=== PATIENT | female | born 1990 | race African-American/Black ===

== ENCOUNTER 2017-10-21 16:50 | Inpatient (IN) | payer OTHER ==
[~2017-10-21 16:50] MED LIST: METOCLOPRAMIDE HCL INJ/PF 10 MG/2 ML SDV ONE; PHENYLEPHRINE HCL INJ/PF 10 MG/1 ML SDV ONE
[2017-10-21 17:29] LABS: APPEARANCE,URINE CLOUDY; BILIRUBIN,URINE NEGATIVE (NEGATIVE); COLOR,URINE YELLOW; GLUCOSE, URINE NEGATIVE (NEGATIVE); KETONES,URINE NEGATIVE (NEGATIVE); LEUKOCYTE ESTERASE,URINE SMALL (NEGATIVE); NITRITE,URINE NEGATIVE (NEGATIVE); PROTEIN,URINE 30 mg/dL (NEGATIVE); URINE SPECIFIC GRAVITY 1.013; UROBILINOGEN,URINE NEGATIVE mg/dL (<2.0)
[2017-10-21 17:45] LABS: URINE AMPHETAMINES SCREEN NEGATIVE; URINE BARBITURATES SCREEN NEGATIVE; URINE BENZODIAZEPINES SCREEN NEGATIVE; URINE COCAINE SCREEN NEGATIVE; URINE MARIJUANA (THC) SCREEN NEGATIVE; URINE METHADONE SCREEN NEGATIVE; URINE PHENCYCLIDINE SCREEN NEGATIVE
[2017-10-21 18:51] LABS: ABSOLUTE BASOPHILS # (AUTO) 0.1 10^3/uL (0.0-0.2); ABSOLUTE EOSINOPHILS # (AUTO) 0.1 10^3/uL (0.0-0.6); ABSOLUTE LYMPHOCYTES (AUTO) 1.8 10^3/uL (0.5-4.7); ABSOLUTE MONOCYTES (AUTO) 0.6 10^3/uL (0.1-1.4); ABSOLUTE NEUT (AUTO) 5.6 10^3/uL (1.7-8.2); BASOPHILS % (AUTO) 0.7 % (0-2); HEMATOCRIT 34.9 % (36.0-47.0); HEMOGLOBIN 11.6 g/dL (12.0-15.5); LYMPHOCYTES % (AUTO) 21.8 % (13-45); MEAN CORPUSCULAR HEMOGLOBIN 25.5 pg (27.0-33.4); MEAN CORPUSCULAR HGB CONC 33.3 g/dL (32.0-36.0); MEAN CORPUSCULAR VOLUME 77 fl (80-97); MONOCYTES % (AUTO) 7.4 % (3-13); PLATELET COUNT 167 10^3/uL (150-450); RED BLOOD COUNT 4.55 10^6/uL (3.72-5.28); SEGMENTED NEUTROPHILS % (AUTO) 69.1 % (42-78); TOTAL CELLS COUNTED % (AUTO) 100 %; WHITE BLOOD COUNT 8.1 10^3/uL (4.0-10.5)
[2017-10-21 19:09] LABS: ALANINE AMINOTRANSFERASE 17 U/L (9-52); ALBUMIN 3.3 g/dL (3.5-5.0); ALKALINE PHOSPHATASE 143 U/L (38-126); ANION GAP 11 (5-19); ASPARTATE AMINO TRANSFERASE 20 U/L (14-36); BILIRUBIN,DIRECT 0.2 mg/dL (0.0-0.4); BILIRUBIN,TOTAL 0.3 mg/dL (0.2-1.3); BLOOD UREA NITROGEN 11 mg/dL (7-20); CALCIUM 9.5 mg/dL (8.4-10.2); CARBON DIOXIDE 18 mmol/L (22-30); CHLORIDE 106 mmol/L (98-107); GLUCOSE 90 mg/dL (75-110); POTASSIUM 4.3 mmol/L (3.6-5.0); SODIUM 134.5 mmol/L (137-145); TOTAL PROTEIN 6.3 g/dL (6.3-8.2); URIC ACID 7.5 mg/dL (2.5-6.2)
[2017-10-21 19:12] LABS: APPEARANCE,URINE CLEAR; BILIRUBIN,URINE NEGATIVE (NEGATIVE); COLOR,URINE STRAW; GLUCOSE, URINE NEGATIVE (NEGATIVE); KETONES,URINE NEGATIVE (NEGATIVE); LEUKOCYTE ESTERASE,URINE NEGATIVE (NEGATIVE); NITRITE,URINE NEGATIVE (NEGATIVE); PROTEIN,URINE NEGATIVE (NEGATIVE); URINE SPECIFIC GRAVITY 1.005; UROBILINOGEN,URINE NEGATIVE mg/dL (<2.0)
[2017-10-21 19:37] LABS: UR PRO/CREAT RATIO RESULT 0.6 mg/mg (0.0-0.2); URINE PROTEIN 19.8 mg/dL (<12)
--- NOTE | 2017-10-21 19:50 | Admission Physical ---
Datetime Report Generated by CPN: 10/21/2017 19:50 CURRENT ADMISSION Chief Complaint: Illness; Maternal Discomfort Chief Complaint Other: Headaches x 4 days Indication for Induction: PreEclampsia; Other Indication for Induction- Other: previous c/section. Pt is scheduled for repeat c/section on Friday Admit Impression : Term, Intrauterine ; Repeat Section; Medical Complication Admit Impression- Other: Increased bps and labs indicating PreE. Admit Plan: Admit to Unit; Initiate Section Protocol ALLERGIES Medication Allergies: No Known Allergies (10/21/2017) OBSTETRICAL HISTORY EDC: 10/29/2017 00:00 : 4 Para: 1 Cesareans: 1 SEE RECORDS Alcohol: No Marijuana : No Cocaine: No Other Illicit Drugs: No Cigarettes: Never Smoker. [id number] PHYSICAL EXAM General: Normal HEENT: Normal Neurologic: Normal Thyroid: Normal Heart: Normal Lungs: Normal Breast: Normal Back: Normal Abdomen: Normal Genitourinary Exam: Normal Extremities: Normal DTRs: Normal Pelvic Type: Adequate Vital Signs: Reviewed Details Vital Signs: several diastolic pressures >00 MEMBRANES Pooling: Negative Membranes: Intact FETUS A EGA: 38.6 Monitoring: External US FHR- Baseline: 130 Variability: Moderate 6-25bpm Accelerations: 15X15 Decelerations: None FHR Category: Category I Estimated Weight (gm): 3500 Presentation: Vertex Admit Comment: admit for repeat c/section due to GHTN/PreE. plan d/w patient who is in agreement. d/w pt regarding BTL and she does not desire at this time. INFORMED CONSENT Signature: with User ID: [email or web address]
[2017-10-21] MEDS ORDERED: CEFAZOLIN SODIUM 1 GM in DEXTROSE 5%-WATER 50 ML IV PRN (19:54)
[2017-10-21] MEDS ORDERED: RINGERS SOLUTION 1,000 ML IV PRN (19:57)
[2017-10-21] MEDS ORDERED: CITRIC ACID/SODIUM CITRATE ORAL SOLN 15 ML UDCUP ONE ×2 (20:11)
[2017-10-21] MEDS ORDERED: CEFAZOLIN 1 GM/D5W RTU 1 GM/50 ML RTUPB IV ONE (20:11)
[2017-10-21] MEDS ORDERED: RINGERS SOLUTION,LACTATED 1,000 ML IV PRN ×2 (20:35→21:53)
[2017-10-21] MEDS ORDERED: RINGERS SOLUTION,LACTATED 1,000 ML IV ONE (20:47)
[2017-10-21] MEDS ORDERED: FENTANYL CITRATE INJ/PF 100 MCG/2 ML AMPUL ONE (20:53)
[2017-10-21] MEDS ORDERED: MIDAZOLAM 2 MG/2 ML INJ ONE (20:53)
[2017-10-21] MEDS ORDERED: EPHEDRINE SULFATE INJ 50 MG/1 ML AMPULE ONE (20:53)
[2017-10-21] MEDS ORDERED: OXYTOCIN 10 UNIT/ML VIAL ONE (20:53)
[2017-10-21] MEDS ORDERED: OXYTOCIN/NORMAL SALINE 20 UNIT/1,000 ML RTUINJ ONE (20:53)
[2017-10-21] MEDS ORDERED: ONDANSETRON HCL INJ/PF 4 MG/2 ML SDV ONE (20:54)
[2017-10-21] MEDS ORDERED: BUPIVACAINE HCL/DEX-WATER/PF 15 MG/2 ML AMPULE ONE (21:00)
[2017-10-21] MEDS ORDERED: PROMETHAZINE HCL INJ 25 MG/1 ML VIAL IV PRN ×2 (21:47→21:53)
[2017-10-21] MEDS ORDERED: MORPHINE SULFATE 10 MG/ML INJ IV PRN ×2 (21:47→21:53)
[2017-10-21] MEDS ORDERED: DIPHENHYDRAMINE HCL 50 MG/ML VIAL IV PRN (21:47)
[2017-10-21] MEDS ORDERED: MEPERIDINE HCL/PF INJ 25 MG/1 ML DISP.SYRIN IV PRN (21:47)
[2017-10-21] MEDS ORDERED: FENTANYL CITRATE INJ/PF 100 MCG/2 ML AMPUL IV PRN ×3 (21:47)
[2017-10-21] MEDS ORDERED: NALBUPHINE HCL INJ 10 MG/1 ML AMPULE IM ONE (21:48)
[2017-10-21] MEDS ORDERED: DIPH/PERTUSS(ACELL)/TETANUS VAC/PF 0.5 ML SYR (>=10YO) IM PRN (21:53)
[2017-10-21] MEDS ORDERED: OXYTOCIN/NORMAL SALINE 20 UNIT/1,000 ML RTUINJ IV PRN (21:53)
[2017-10-21] MEDS ORDERED: ACETAMINOPHEN 325 MG TABLET PO PRN (21:53)
[2017-10-21] MEDS ORDERED: OXYCODONE-ACETAMINOPHEN 5-325 MG TABLET PO PRN (21:53)
[2017-10-21] MEDS ORDERED: SIMETHICONE 80 MG TAB.CHEW PO PRN (21:53)
[2017-10-21] MEDS ORDERED: MEASLES,MUMPS&RUBELLA VACC/PF 0.5 ML VIAL SUBCUT PRN (21:53)
[2017-10-21] MEDS ORDERED: ACETAMINOPHEN 100 MG/10 ML RTUPB IV PRN (21:53)
--- NOTE | 2017-10-21 22:11 | OPERATIVE REPORT E ---
Operative Report NAME: YAMEL PATEL : 1990 AGE: 27Y DATE OF SURGERY: 10/21/2017 ROOM: LR200 PREOPERATIVE DIAGNOSES: INTRAUTERINE AT 38 WEEKS AND 6 DAYS, PREECLAMPSIA, GESTATIONAL HYPERTENSION. POSTOPERATIVE DIAGNOSES: INTRAUTERINE AT 38 WEEKS AND 6 DAYS, PREECLAMPSIA, GESTATIONAL HYPERTENSION. OPERATION: Repeat low transverse hysterotomy section. SURGEON: KAREEM GIFFORD M.D. ANESTHESIA: Spinal. FINDINGS: Male infant in cephalic presentation with Apgars of 9-9. ESTIMATED BLOOD LOSS: 750 mL. SPECIMENS RMEOVED: None. PROCEDURE: The patient was taken to the operating room, prepared and draped in normal sterile fashion in supine position with a leftward tilt. A transverse skin incision was made with the scalpel and carried through to the underlying layer of fascia with the same scalpel. The fascia was excised in the midline and extended laterally with Mayos. The fascia was dissected sharply from the rectus muscle using a Bovie, and the rectus muscle was divided. The peritoneal cavity had been entered bluntly. With good visualization of the bladder and the uterus, the hysterotomy was nicked with a scalpel and extended laterally with surgeon finger fracture. The infant was then delivered atraumatically. The nose and mouth were suctioned with a suction bulb. The cord was clamped and cut. The was handed off to waiting pediatricians. Cord blood was collected. The placenta was removed manually. The uterus was exteriorized and cleared of clots and debris. The hysterotomy was closed with 0 Monocryl in a running locked fashion. A 2nd layer of the same suture was used in an imbricating stitch to ensure hemostasis. The uterus was returned to the abdomen. The peritoneal cavity was cleared of clots and debris. The rectus muscle and peritoneum were reapproximated with a mattress stitch of 2-0 Chromic. The fascia was closed with 0 Vicryl. The subcutaneous layer was closed with plain cat gut, and the skin was closed with 4-0 Vicryl. The patient tolerated the procedure well. Sponge, lap, and needle counts were correct x2. The patient was taken to recovery in stable condition. DICTATING PHYSICIAN: KAREEM GIFFORD M.D. [id number] PHY#: [id number] ID: [id number] JOB#: [id number] ACCT: [id number] cc:KAREEM GIFFORD M.D. >
[2017-10-21] MEDS ORDERED: KETOROLAC TROMETHAMINE INJ/PF 30 MG/1 ML SDV ONE (22:57)
[2017-10-21] MEDS ORDERED: ACETAMINOPHEN 1,000 MG/100 ML RTUPB IV ONE (22:57)
[2017-10-21] MEDS: KETOROLAC TROMETHAMINE INJ/PF 30 MG/1 ML SDV IV SCH (23:20)
[2017-10-22] MEDS: IBUPROFEN 800 MG TABLET PO SCH ×4 (02:27→21:27)
[2017-10-22] MEDS: OXYCODONE-ACETAMINOPHEN 5-325 MG TABLET PO PRN ×4 (06:51→19:36)
[2017-10-22] MEDS: KETOROLAC TROMETHAMINE INJ/PF 30 MG/1 ML SDV IV SCH ×2 (06:51→15:26)
[2017-10-22 07:40] LABS: HEMATOCRIT 33.3 % (36.0-47.0); HEMOGLOBIN 11.3 g/dL (12.0-15.5); MEAN CORPUSCULAR HEMOGLOBIN 26.1 pg (27.0-33.4); MEAN CORPUSCULAR HGB CONC 33.9 g/dL (32.0-36.0); MEAN CORPUSCULAR VOLUME 77 fl (80-97); PLATELET COUNT 150 10^3/uL (150-450); RED BLOOD COUNT 4.32 10^6/uL (3.72-5.28); RED CELL DISTRIBUTION WIDTH 16.3 % (11.5-14.0); WHITE BLOOD COUNT 10.3 10^3/uL (4.0-10.5)
--- NOTE | 2017-10-22 08:27 | Delivery Summary ---
Del Sum A-C Datetime Report Generated by CPN: 10/22/2017 08:27 DELIVERY PERSONNEL DELIVERY PERSONNEL: [id number] Delivery Doctor:: Dunai Dhillon MD Anesthesiologist:: Katarzyna Chavez MD Anesthesiologist:: Katarzyna Chavez MD LEATHER STRETCHER:: Jersey Twan, LEATHER STRETCHER LEATHER STRETCHER:: Jersey Twan, LEATHER STRETCHER Coding Consultant:: Bren Putnam RN Tool Programmer:: Dr. Rakan Harding Nursery Nurse:: Rima Salazar RN Clinical Rehabilitation Aide/COMPRESSED GAS PLANT WORKER: ST Sari Clinical Rehabilitation Aide/COMPRESSED GAS PLANT WORKER: ST Emanuel Additional Personnel: : Geovani Weiner CNA MATERNAL INFORMATION Delivery Anesthesia: Spinal Medications After Delivery: Pitocin Drip 20 Units/1000ml NSS Maternal Complications: None LABOR SUMMARY EDC: 10/29/2017 00:00 No. Babies in Womb: 1 Attempted: No Labor Anesthesia: None LABOR INFORMATION Reason for Induction: Not Applicable Oxytocin: N/A Group B Beta Strep: unk Steroids Given: None Reason Steroids Not Administered: Not Applicable MEMBRANES Membranes Rupture Method: Artificial Rupture of Membranes: 10/21/2017 21:18 Length of Rupture (hr): 0.03 Amniotic Fluid Color: Clear Amniotic Fluid Amount: Scant STAGES OF LABOR Stage 3 hr: 0 Stage 3 min: 1 VAGINAL DELIVERY Episiotomy: None Laceration #1: None Laceration Extension #1: N/A Laceration Repair: Not Applicable Sponge Count Correct: N/A Sharps Count Correct: N/A CSECTION DELIVERY Primary Indication: Repeat Elective Other Secondary Indication: Pre-e CSection Urgency: Non-Scheduled CSection Incidence: Repeat Labor: No Labor Elective: Elective CSection Incision: Lower Uterine Transverse BABY A INFORMATION Delivery Date/Time: 10/21/2017 21:20 Method of Delivery: Born in Route : No : N/A Forceps: N/A Vacuum Extraction: N/A Shoulder Dystocia : No PRESENTATION/POSITION BABY A Presentation: Cephalic Cephalic Presentation: Vertex Vertex Position: Right Occipital Anterior Breech Presentation: N/A PLACENTA INFORMATION BABY A Placenta Delivery Time : 10/21/2017 21:21 Placenta Method of Delivery: Manual Removal Placenta Status: Delivered SCORES BABY A Heart Rate 1 min: >100 bpm Resp Effort 1 min: Good Cry Reflex Irritability 1 min: Cough or Sneeze or Pulls Away Muscle Tone 1 min: Active Motion Color 1 min: Body [place], Extremities Blue SCORE 1 MIN: 9 Heart Rate 5 min: >100 bpm Resp Effort 5 min: Good Cry Reflex Irritability 5 min: Cough or Sneeze or Pulls Away Muscle Tone 5 min: Active Motion Color 5 min: Body [place], Extremities Blue SCORE 5 MIN: 9 INFANT INFORMATION BABY A Gestational Age at Delivery: 38.6 Gestational Status: Early Term- 37- 38.6 Weeks Outcome : Liveborn Infant Condition : Stable Sex: Male IDENTIFICATION BABY A Verification Date/Time: 10/21/2017 21:30 ID Band Number: [id number] Mother's Name Verified: Yes Infant RN Verifying : K Indy RN Additional Verifying Personnel: R Ertel COMPRESSED GAS PLANT WORKER WEIGHT/LENGTH BABY A Birthweight (gm): 3810 Infant Weight (lb): 8 Infant Weight (oz): 6 Length (in): 20.50 Length (cm): 52.07 CORD INFORMATION BABY A No. Cord Vessels: 3 Nuchal Cord : N/A Cord Blood Taken: Yes-For Eval (Mom's Blood Type - or O+) Infant Suction: Mouth; Nose ASSESSMENT BABY A Infant Complications: None Physical Findings at Delivery: Within Normal Limits Infant Respirations: Appears Normal Skin to Skin: Yes Infant Care By: D Martin RNC Transferred To: Nursery BABY B INFORMATION : N/A
[2017-10-22] MEDS: DOCUSATE SODIUM 100 MG CAPSULE PO SCH ×2 (10:13→19:04)
[2017-10-22] MEDS: PRENATAL VITAMIN W DHA CAPSULE PO SCH (10:13)
--- NOTE | 2017-10-22 20:32 | PDOC PROGRESS REPORT ---
Subjective-OB Progress Note for:: 10/22/17 Subjective: Pt doing well, has Headache. Pain is controlled. She reports light bleeding, reg diet with + flatus and voiding without difficulty. Physical Exam (OB) Vital Signs: Temp Pulse Resp BP Pulse Ox 97.8 F 82 18 143/95 H 99 10/22/17 09:00 10/22/17 11:34 10/22/17 11:34 10/22/17 13:40 10/22/17 11:34 Intake & Output 10/21/17 10/22/17 10/23/17 06:59 06:59 06:59 Intake Total 1680 Output Total 800 1300 Balance -800 380 Weight 94.6 kg - PIH/Pre-Eclampsia DTR's: 1 + Clonus: Negative Headache: Absent Epigastric Pain: No Visual Changes: No - Dressing Removed: No Incision: Dressing Closure Type: opsite - Bilateral Tubal Ligation Dressing Removed: No Site: Draining - Lochia Lochia Amount: Small 10-25 ml Lochia Color: Rubra/Red - Abdomen Description: Tender, Soft Hernia Present: No Fundal Description: Firm, Midline Fundal Height: u/u - u/2 Objective-Diagnostic Laboratory: 10/22/17 06:38 10/21/17 18:38 10/21/17 10/22/17 18:38 06:38 WBC 10.3 RBC 4.32 Hgb 11.3 L Hct 33.3 L MCV 77 L MCH 26.1 L MCHC 33.9 RDW 16.3 H Plt Count 150 Blood Type O POSITIVE Antibody Screen NEGATIVE Assessment and Plan(PN) - Assessment and Plan (1) delivery delivered Is this a current diagnosis for this admission?: Yes (2) Pre-eclampsia in third trimester Is this a current diagnosis for this admission?: Yes - Time Spent with Patient Time with patient: Less than 15 minutes Medications reviewed and adjusted accordingly: Yes - Disposition Anticipated Discharge: Home Within: within 24 hours
[2017-10-23] MEDS: OXYCODONE-ACETAMINOPHEN 5-325 MG TABLET PO PRN ×2 (00:10→12:52)
[2017-10-23] MEDS: IBUPROFEN 800 MG TABLET PO SCH ×2 (03:21→09:48)
--- NOTE | 2017-10-23 10:19 | PDOC PROGRESS REPORT ---
Subjective-OB Progress Note for:: 10/23/17 Subjective: Pt wants to go home today, feeling well, voiding, passing gas, , pain under control Physical Exam (OB) Vital Signs: Temp Pulse Resp BP Pulse Ox 97.7 F 85 20 140/91 H 98 10/23/17 00:14 10/23/17 03:23 10/23/17 03:23 10/23/17 03:23 10/23/17 03:23 Intake & Output 10/22/17 10/23/17 10/24/17 06:59 06:59 06:59 Intake Total 1680 Output Total 800 1300 Balance -800 380 Weight 94.6 kg - PIH/Pre-Eclampsia DTR's: 1 + Clonus: Negative Headache: Absent Epigastric Pain: No Visual Changes: No - Dressing Removed: No Incision: Dressing Closure Type: opsite - Bilateral Tubal Ligation Dressing Removed: No Site: Draining - Lochia Lochia Amount: Small 10-25 ml Lochia Color: Rubra/Red - Abdomen Description: Tender, Soft Hernia Present: No Fundal Description: Firm, Midline Fundal Height: u/u - u/2 Objective-Diagnostic Laboratory: 10/22/17 06:38 10/21/17 18:38 Assessment and Plan(PN) - Assessment and Plan (1) delivery delivered Is this a current diagnosis for this admission?: Yes (2) Pre-eclampsia in third trimester Is this a current diagnosis for this admission?: Yes - Time Spent with Patient Time with patient: Less than 15 minutes Medications reviewed and adjusted accordingly: Yes - Disposition Anticipated Discharge: Home Within: Other - home today
--- NOTE | 2017-10-23 10:21 | PDOC DISCHARGE SUMMARY ---
Final Diagnosis Discharge Date: 10/23/17 - Final Diagnosis (1) delivery delivered Is this a current diagnosis for this admission?: Yes (2) Pre-eclampsia in third trimester Is this a current diagnosis for this admission?: Yes Discharge Data - Discharge Medication Prescriptions: Oxycodone HCl/Acetaminophen [Percocet 5-325 mg Tablet] 1 tab PO Q4HP PRN #30 tablet PRN Reason: Ibuprofen [Motrin 800 mg Tablet] 800 mg PO Q6A #60 tablet Home Medications: Pnv No.95/Ferrous Fum/Folic AC [ Multivitamin Tablet] 1 tab PO DAILY 07/04 Ibuprofen [Motrin 800 mg Tablet] 800 mg PO Q6A #60 tablet 10/23/17 Oxycodone HCl/Acetaminophen [Percocet 5-325 mg Tablet] 1 tab PO Q4HP PRN #30 tablet 10/23/17 Gestational Age: 39 Reason(s) for Admission: Ceasarean Section-Repeat Procedures: NST, Ultrasound Intrapartum Procedure(s): : Low Cervical, Transverse - Diagnosis Test Laboratory: Temp Pulse Resp BP Pulse Ox 97.7 F 85 20 140/91 H 98 10/23/17 00:14 10/23/17 03:23 10/23/17 03:23 10/23/17 03:23 10/23/17 03:23 10/21/17 10/21/17 10/22/17 17:03 18:38 06:38 RBC 4.55 4.32 Hgb 11.6 L 11.3 L Hct 34.9 L 33.3 L Urine Opiates Screen NEGATIVE - Discharge information/Instructions Discharge Activity: Activity As Tolerated, No Lifting Over 10 Pounds, No Lifting /Push/Pulling, Pelvic Rest Discharge Diet: Regular, Cardiac Disposition: HOME, SELF-CARE Follow up with: [facility] in: 3, Days
[2017-10-23] MEDS: DOCUSATE SODIUM 100 MG CAPSULE PO SCH (13:05)
[2017-10-23] MEDS: PRENATAL VITAMIN W DHA CAPSULE PO SCH (13:06)
[2017-10-23 14:12] VITALS: BP 120/82
== END 2017-10-23 13:45 | disposition home or self-care (01) | DRG 766 ==
LOC: LC 16:50 → LR 19:37 → 2S 10-22 00:01
PROVIDERS: ADMIT Obstetrics & Gynecology; ATTEND Obstetrics & Gynecology
PROC: 10D00Z1 Extraction of Products of Conception, Low, Open Approach (ICD-10-PCS; principal; 2017-10-21)
PROC: 4A1HXCZ Monitoring of Products of Conception, Cardiac Rate, External Approach (ICD-10-PCS; 2017-10-21)
DX: O14.94 Unspecified pre-eclampsia, complicating childbirth (principal); O34.211 Maternal care for low transverse scar from previous cesarean delivery; Z3A.39 39 weeks gestation of pregnancy; Z37.0 Single live birth
CPT/HCPCS: 1961; 36415; 59025; 80053; 80307; 81001; 81005; 82570; 83615; 84156; 84550; 85025; 85027; 86850; 86900; 86901; 94799; J0131; J0690; J1885; J2250; J2270; J2370; J2405; J2590; J2765; J3010; J3490; J7120

== ENCOUNTER 2017-11-07 12:17 | Emergency (ER) | payer OTHER ==
--- NOTE | 2017-11-07 12:48 | ER Document Report ---
ED Medical Screen (RME) - General Chief Complaint: Headache Stated Complaint: HEADACHE/BLURRED VISION Time Seen by Provider: 11/07/17 12:40 Mode of Arrival: Ambulatory Information source: Patient Notes: This is a 27-year-old female 2 weeks who had an emergent because of preeclampsia. Her blood pressure at that time was 161/100 and she had protein in the urine and a uric acid which was elevated. She states she has had headaches since the but they have persisted. She has taken Excedrin and it does relieve the the pain. She is not sure whether it safe and breast-feeding. She denies any abdominal pain, neck pain, shortness of breath, lower extremity swelling. Her next appointment with Dr. Gifford of OB is on Friday. She describes the headache is bandlike which is dull in nature. She denies any speech changes or weakness to the arms or legs. She denies any neck pain or photophobia. She denies any fever. TRAVEL OUTSIDE OF THE [place] IN LAST 30 DAYS: No - HPI Onset: Last week Onset/Duration: Gradual Quality of pain: Dull Severity: Mild Pain Level: 1 Associated Symptoms: denies: Abdominal pain, Chest pain, Shortness of breath Exacerbated by: Denies Relieved by: Denies Similar symptoms previously: Yes Recently seen / treated by doctor: Yes - Related Data Smoking: Non-smoker Frequency of alcohol use: None Drug Abuse: None Allergies/Adverse Reactions: No Known Allergies Allergy (Verified 11/07/17 12:18) Past Medical History - General Information source: Patient - Social History Cigarette use (# per day): No Chew tobacco use (# tins/day): No Frequency of alcohol use: None Drug Abuse: None Lives with: Family Family history: None - Medical History Medical History: Negative Renal/ Medical History: Denies: Hx Peritoneal Dialysis Past Surgical History: Reports: Hx Section Review of Systems - Review of Systems Constitutional: denies: Chills, Fever EENT: denies: Nose congestion, Nose discharge, Sinus pressure Cardiovascular: denies: Chest pain, Palpitations, Heart racing Respiratory: denies: Cough, Short of breath, Wheezing Gastrointestinal: No symptoms reported. denies: Abdominal pain, Vomiting Genitourinary: denies: Burning, Dysuria, Discharge Female Genitourinary: No symptoms reported Musculoskeletal: No symptoms reported Skin: No symptoms reported Hematologic/Lymphatic: No symptoms reported Neurological/Psychological: Headaches. denies: Confusion, Loss of power, Paralysis, Seizure, Lost consciousness, Speech impairment, Numbness Physical Exam - Vital signs Vitals: Temp Pulse Resp BP Pulse Ox 97.4 F 92 16 120/83 98 11/07/17 12:20 11/07/17 12:20 11/07/17 12:20 11/07/17 12:20 11/07/17 12:20 Notes: Physical exam: GENERAL: Well-appearing 27-year-old female, alert and oriented 3, no acute distress HEAD: Atraumatic, normocephalic. EYES: Pupils equal round and reactive to light, extraocular movements intact, sclera anicteric, conjunctiva are normal. ENT: TMs normal, nares patent, oropharynx clear without exudates. Moist mucous membranes. NECK: Normal range of motion, supple without obvious mass or JVD. LUNGS: Breath sounds clear to auscultation bilaterally and equal. No wheezes rales or rhonchi. HEART: Regular rate and rhythm without murmurs, rubs or gallops. ABDOMEN: Soft, normoactive bowel sounds. No tenderness to palpation. No guarding, no rebound. No masses appreciated. EXTREMITIES: Normal range of motion, no pitting or edema. No clubbing or cyanosis. NEUROLOGICAL: Cranial nerves II through XII grossly intact. Normal speech, moving all extremities. PSYCH: Normal mood, normal affect. SKIN: Warm, Dry, normal turgor, no rashes or lesions noted. Course - Re-evaluation Re-evalutation: 11/07/17 12:52 I did discuss the case with Dr. Colby Webb of OB who agrees with continued outpatient management and that Excedrin should be safe with breast-feeding. The patient looks quite good on exam, blood pressure is 120/80, her lungs are clear and her heart is regular and she has no peripheral edema in any of the extremities. She does have an appointment with Dr. Gifford of OB on Friday. - Vital Signs Vital signs: Temp Pulse Resp BP Pulse Ox 97.4 F 92 16 120/83 98 11/07/17 12:20 11/07/17 12:20 11/07/17 12:20 11/07/17 12:20 11/07/17 12:20 Doctor's Discharge - Discharge Clinical Impression: Headache Condition: Stable Disposition: HOME, SELF-CARE Additional Instructions: As we discussed, your blood pressure was 120/80 today which is great. I would drink plenty of fluids. Continue with ibuprofen as needed. I did discuss the Excedrin with Dr. Webb and he said that should be fine with breast-feeding. I would like you to follow-up with Dr. Gifford as planned on Friday. Return to the emergency room for worsening headaches, any concerns your blood pressures getting elevated, any abdominal pain or any concerns or getting worse. Referrals: KAREEM GIFFORD MD [Primary Care Provider] - 11/10/17
[2017-11-07 12:52] VITALS: BP 117/79
== END 2017-11-07 12:52 | disposition home or self-care (01) ==
LOC: ER 12:17
DX: O90.9 Complication of the puerperium, unspecified (principal); R51 Headache; H53.8 Other visual disturbances
CPT/HCPCS: 99284